=== PATIENT | female | born 1980 | race Caucasian/White ===

== ENCOUNTER 2017-08-26 12:09 | Emergency (ER) | payer OTHER ==
[~2017-08-26] VITALS: Ht 157.5 cm; Wt 74.8 kg
[~2017-08-26 12:09] MED LIST: ACYC800 PO; ALBU90OI61 INH; CEPH500 PO; CRUTCH4 USE; CYCL10 PO; GUAI100SY PO; HYDACE5 PO; IBUP800 PO; NAPR500 PO; NYQUIL; Naprosyn500 MG PO; Norco 5-325 Ta1 EACH PO; OXYACE5T PO; SULTRIDS PO; TRAM50 PO; Ultram50 MG PO
[2017-08-26] MEDS ORDERED: ALBU90OI INH (14:36)
[2017-08-26] MEDS ORDERED: BENZ100A PO (14:36)
== END 2017-08-26 14:59 | disposition home or self-care (01) ==
LOC: ER 12:09
DX: J06.9 Acute upper respiratory infection, unspecified (principal); F17.210 Nicotine dependence, cigarettes, uncomplicated
CPT/HCPCS: 71046; 99283

== ENCOUNTER → 2021-04-16 | Outpatient (CLI) | payer OTHER ==
[~2021-04-16] MED LIST changes: +ALBU90OI INH; +BENZ100A PO; +TRAZ50 PO
[2021-04-17 15:09] LABS: HPV 16 Negative (Negative); HPV 18 Negative (Negative); HPV OTHER HR TYPES Negative (Negative)
== END ==
LOC: LAB 10:55 → LAB SHORT 10:55
PROVIDERS: Obstetrics & Gynecology
DX: Z01.419 Encounter for gynecological examination (general) (routine) without abnormal findings (principal)
CPT/HCPCS: 87624; G0123

== ENCOUNTER 2022-10-03 08:24 | Emergency (ER) | payer OTHER ==
[~2022-10-03] VITALS: Ht 160 cm; Wt 86.2 kg
[2022-10-03] MEDS ORDERED: SUBOXONE 8 MG-1 EACH SL (09:03)
[2022-10-03] MEDS ORDERED: PHENERGAN25 MG PR (09:04)
[2022-10-03] MEDS ORDERED: ONDA4ODT MM (09:04)
== END 2022-10-03 09:16 | disposition home or self-care (01) ==
LOC: ER 08:24
DX: F11.90 Opioid use, unspecified, uncomplicated (principal); Z87.891 Personal history of nicotine dependence
CPT/HCPCS: 99281

== ENCOUNTER 2024-02-11 12:36 | Emergency (ER) | payer OTHER ==
[~2024-02-11] VITALS: Ht 160 cm; Wt 86.2 kg
[~2024-02-11 12:36] MED LIST changes: +ONDA4ODT MM; +PHENERGAN25 MG PR; +SUBOXONE 8 MG-1 EACH SL
[2024-02-11 13:35] VITALS: BP 119/74
[2024-02-11] MEDS ORDERED: Methadone HCL 10 MG TAB PO ONE (15:00)
[2024-02-11] MEDS ORDERED: METH10 (21:50)
== END 2024-02-11 15:30 | disposition home or self-care (01) ==
LOC: ER 12:36
DX: F11.90 Opioid use, unspecified, uncomplicated (principal); Z76.0 Encounter for issue of repeat prescription; Z79.899 Other long term (current) drug therapy; Z87.891 Personal history of nicotine dependence
CPT/HCPCS: 99281

== ENCOUNTER 2024-02-11 19:41 | Emergency (ER) | payer OTHER ==
[~2024-02-11] VITALS: Ht 157.5 cm; Wt 86.2 kg
[2024-02-11 20:00] VITALS: BP 127/901
[2024-02-11] MEDS ORDERED: METH10 (21:50)
== END 2024-02-11 20:30 | disposition home or self-care (01) ==
LOC: ER 19:41
DX: Z76.0 Encounter for issue of repeat prescription (principal); Z53.29 Procedure and treatment not carried out because of patient's decision for other reasons
CPT/HCPCS: 99281

== ENCOUNTER → 2024-07-25 | Outpatient (CLI) | payer OTHER ==
[~2024-07-25] MED LIST changes: +METH10
[2024-07-25 15:04] LABS: Bacterial Vaginosis PCR Negative (NEGATIVE); Candida Group, PCR NOT DETECTED (NOT DETECT); Candida glabrata-krusei, PCR NOT DETECTED (NOT DETECT)
== END ==
LOC: LAB SHORT 10:55 → LAB 10:55
PROVIDERS: Advanced Practice Midwife
DX: N76.0 Acute vaginitis (principal)
CPT/HCPCS: 81515

== ENCOUNTER 2024-08-12 18:20 | Emergency (ER) | payer OTHER ==
[~2024-08-12] VITALS: Ht 160 cm; Wt 72.6 kg
[2024-08-12 18:46] VITALS: BP 147/84
[2024-08-12] MEDS ORDERED: Methadone HCL 10 MG TAB PO ONE (18:50)
== END 2024-08-12 18:52 | disposition home or self-care (01) ==
LOC: ER 18:20
DX: F11.90 Opioid use, unspecified, uncomplicated (principal); Z76.0 Encounter for issue of repeat prescription; Z87.891 Personal history of nicotine dependence
CPT/HCPCS: 99281; A9270

== ENCOUNTER 2024-09-15 13:32 | Emergency (ER) | payer OTHER ==
[~2024-09-15] VITALS: Ht 157.5 cm; Wt 88.5 kg
[2024-09-15 13:41] VITALS: BP 138/83
[2024-09-15] MEDS ORDERED: Methadone HCL 10 MG TAB PO ONE (14:10)
== END 2024-09-15 14:29 | disposition home or self-care (01) ==
LOC: ER 13:32
DX: F11.90 Opioid use, unspecified, uncomplicated (principal); Z87.891 Personal history of nicotine dependence
CPT/HCPCS: 99281; A9270

== ENCOUNTER 2024-10-02 20:06 | Emergency (ER) | payer OTHER ==
[~2024-10-02] VITALS: Ht 160 cm; Wt 90.7 kg
[2024-10-02 20:13] VITALS: BP 153/93
[2024-10-02] MEDS ORDERED: Methadone HCL 10 MG TAB PO ONE (20:35)
== END 2024-10-02 20:40 | disposition home or self-care (01) ==
LOC: ER 20:06
DX: F19.10 Other psychoactive substance abuse, uncomplicated (principal); Z76.0 Encounter for issue of repeat prescription; Z87.891 Personal history of nicotine dependence
CPT/HCPCS: 99281; A9270

== ENCOUNTER 2024-10-10 18:26 | Emergency (ER) | payer OTHER ==
[~2024-10-10] VITALS: Ht 160 cm; Wt 90.7 kg
[2024-10-10 18:32] VITALS: BP 158/86
[2024-10-10] MEDS ORDERED: Methadone HCL 10 MG TAB PO ONE (19:30)
== END 2024-10-10 19:46 | disposition home or self-care (01) ==
LOC: ER 18:26
DX: Z76.89 Persons encountering health services in other specified circumstances (principal); F11.90 Opioid use, unspecified, uncomplicated; Z87.891 Personal history of nicotine dependence
CPT/HCPCS: 99281; A9270

== ENCOUNTER 2024-10-18 21:44 | Emergency (ER) | payer OTHER ==
[~2024-10-18] VITALS: Ht 160 cm; Wt 90.7 kg
[2024-10-18 22:06] VITALS: BP 138/95
[2024-10-18] MEDS ORDERED: Methadone HCL 10 MG TAB PO ONE (23:25)
== END 2024-10-19 00:18 | disposition left against medical advice (07) ==
LOC: ER 21:44
DX: Z76.0 Encounter for issue of repeat prescription (principal); Z87.891 Personal history of nicotine dependence
CPT/HCPCS: A9270

== ENCOUNTER 2024-11-15 20:16 | Emergency (ER) | payer OTHER ==
[~2024-11-15] VITALS: Ht 160 cm; Wt 90.7 kg
[2024-11-15 21:01] VITALS: BP 129/91
[2024-11-15] MEDS ORDERED: Methadone HCL 10 MG TAB PO ONE (21:05)
== END 2024-11-15 21:24 | disposition home or self-care (01) ==
LOC: ER 20:16
DX: Z76.0 Encounter for issue of repeat prescription (principal)
CPT/HCPCS: 99281; A9270

== ENCOUNTER 2024-11-22 20:55 | Emergency (ER) | payer OTHER ==
[~2024-11-22] VITALS: Ht 160 cm; Wt 86.2 kg
[2024-11-22 21:30] VITALS: BP 125/90
[2024-11-22] MEDS ORDERED: Erythromycin 0.5% Opth Oint 1 gm LEFTEYE ONE (21:50)
== END 2024-11-23 01:57 | disposition left against medical advice (07) ==
LOC: ER 20:55
DX: F11.93 Opioid use, unspecified with withdrawal (principal); Z76.0 Encounter for issue of repeat prescription; Z91.148 Patient's other noncompliance with medication regimen for other reason
CPT/HCPCS: 99281

== ENCOUNTER 2025-02-13 22:14 | Observation (INO) | payer OTHER ==
[~2025-02-13] VITALS: Ht 160 cm; Wt 81.7 kg
[2025-02-13] MEDS ORDERED: Haloperidol Lactate Inj. 5 MG/ML Injection IM ONE (22:55)
[2025-02-13] MEDS ORDERED: DiphenhydrAMINE HCl 50 MG/ML 1ML Vial IM ONE ×2 (22:55→23:00)
[2025-02-13] MEDS ORDERED: Ziprasidone Mesylate 20 MG / Vial IM ONE ×2 (23:00→23:01)
[2025-02-13] MEDS ORDERED: DiphenhydrAMINE HCl 50 MG/ML 1ML Vial ONE (23:00)
[2025-02-13 23:56] LABS: BASOPHILS ABSOLUTE AUTO 0.03 K/mm3 (0.00-0.23); BASOPHILS PERCENT AUTO 1 % (0-2); EOSINOPHILS ABSOLUTE AUTO 0.05 K/mm3 (0.00-0.68); EOSINOPHILS PERCENT AUTO 1 % (0-6); Hematocrit 37.2 % (33.0-51.0); Hemoglobin 12.3 g/dL (11.5-16.0); IMMATURE GRAN ABSOLUTE AUTO 0.01 K/mm3 (0.00-0.10); IMMATURE GRAN PERCENT AUTO 0 % (0-1); LYMPHOCYTES ABSOLUTE AUTO 1.19 K/mm3 (0.84-5.20); LYMPHOCYTES PERCENT AUTO 32 % (21-46); MONOCYTES ABSOLUTE AUTO 0.39 K/mm3 (0.16-1.47); MONOCYTES PERCENT AUTO 11 % (4-13); Mean Corpuscular HGB Conc 33.1 g/dL (31.5-36.5); Mean Corpuscular Volume 89 fL (80-100); NEUTROPHILS ABSOLUTE AUTO 2.02 K/mm3 (1.96-9.15); NEUTROPHILS PERCENT AUTO 55 % (41-73); NRBC ABSOLUTE 0.00 K/mm3 (0.00-0.02); NRBC Auto 0.0 /100 WBC (0.0-0.2); Platelet Count 207 K/mm3 (150-400); RDW Coefficient Variation 13.8 % (11.7-14.2); RDW Standard Deviation 44.4 fL (35.1-46.3)
[2025-02-14 00:20] LABS: Alanine Aminotransfer (ALT/SGP 23.0 U/L (12-78); Albumin, Blood 3.2 g/dL (3.4-5.0); Albumin/Globulin Ratio 0.9 (0.8-1.8); Anion Gap 7.0 mmol/L (3-11); Aspartate Aminotrans (AST/SGOT 15.0 U/L (12-37); Bilirubin, Total 0.6 mg/dL (0.1-1.0); Blood Urea Nitrogen 4.0 mg/dL (8-24); CO2, Blood 27.0 mmol/L (21-32); Calcium, Blood 8.1 mg/dL (8.5-10.1); Chloride, Blood 111.0 mmol/L (98-108); Creatinine, Blood 0.76 mg/dL (0.40-1.00); Ethanol (Alcohol), Blood, Med 53.0 mg/dL; Globulin, Blood 3.4 g/dL (2.2-4.0); Glucose, Blood 101.0 mg/dL (70-99); Potassium, Blood 3.3 mmol/L (3.5-5.5); Sodium, Blood 142.0 mmol/L (136-145); Total Protein, Blood 6.6 g/dL (6.4-8.2)
[2025-02-14 12:10] VITALS: BP 123/85
[2025-02-14 12:36] LABS: U Amphetamine Screen DETECTED; U Barbituate Screen Not Detected; U Benzodiazapine Screen DETECTED; U Buprenorphine Screen Not Detected; U Cannabinoids Screen Not Detected; U Cocaine Screen Not Detected; U Methadone Screen DETECTED; U Methamphetamine Screen DETECTED; U Opiates Screen Not Detected; U Oxycodone Screen Not Detected; U Phencyclidine Screen Not Detected
== END 2025-02-14 14:12 | disposition home or self-care (01) ==
LOC: ER 22:14 → EOR 22:15
PROVIDERS: ADMIT Emergency Medicine
DX: R45.851 Suicidal ideations (principal); F11.229 Opioid dependence with intoxication, unspecified; F15.229 Other stimulant dependence with intoxication, unspecified
CPT/HCPCS: 80053; 80320; 85025; 93005; 93010; 96372; 99285-25; G0378; J1200; J3486

== ENCOUNTER 2025-02-14 13:09 | Inpatient (IN) | payer OTHER ==
[~2025-02-14] VITALS: Ht 160 cm; Wt 78.8 kg
[2025-02-14] MEDS ORDERED: Aluminum Hydroxide 320MG/5ML 473 ML PO PRN (14:00)
[2025-02-14] MEDS ORDERED: DiphenhydrAMINE HCl 50 MG/ML 1ML Vial IM PRN (14:00)
[2025-02-14] MEDS ORDERED: Haloperidol Lactate Inj. 5 MG/ML Injection IM PRN (14:05)
[2025-02-14] MEDS ORDERED: Polyethylene Glycol 3350 17 gm PO PRN (14:10)
[2025-02-14] MEDS ORDERED: Ondansetron 4 MG SoluTab MM PRN (14:10)
--- NOTE | 2025-02-14 16:03 | NUR ---
ADMISSION ASSESSMENT: 14:14 PT ADMITTED TO [facility] FROM [facility]. HER BELONGINGS WERE STORED IN A BIN AND LOCKED WITH SECURE STRAPS. TWO NURSE SKIN CHECK COMPLETED IN A PRIVATE SETTING. PT HAS SUPERFICIAL CUTS ON BOTH WRISTS, "I WAS DRUNK AND FEELING BAD." PT HAS SCRAPES ON BOTH LEGS, "I FELL DOWN YESTERDAY." PT REPORTED THAT, "I QUIT [facility] FENTANYL IN DECEMBER...BOTH COLD TURKEY." PT'S TOX SCREEN WAS POSITIVE FOR METH. SHE REPORTED, "I AM NOT SUICIDAL...NEVER WOULD BE! I WAS HAVING A REALLY BAD DAY, WAS DRINKING AND SITTING ON THE BRIDGE. THE EQUIPMENT OPERATING ENGINEER CAME, I GOT MAD AND SAID SOMETHING ABOUT JUMPING OFF THE BRIDGE. THEN THEY LIED AND SAID THEY WOULD LET ME GO BUT THEN THEY HANDCUFFED ME AND TOOK ME TO THE ER. I HAV NO ONE TO CARE FOR MY CATS. I JUST WANT TO GO HOME. I ALSO LEFT THE KEYS TO MY CAR ON THE SEAT AND IT'S PARKED ON THE SIDE OF THE ROAD." PT WAS ENCOURAGED TO CALL SOMEONE TO CARE FOR HER CATS AND GO SECURE HER VEHICLE. PT TOOK A SHOWER AND IS NOW MAKING PHONE CALLS REGARDING HER CATS AND CAR.
[2025-02-14 20:26] VITALS: BP 108/70
--- NOTE | 2025-02-14 21:47 | NUR ---
MASS SCORE: PATIENT C/O AGITATION 8/10 SECONDARY TO HIGH ANXIETY. SHE WAS ABLE TO TALK ABOUT IT A LITTLE BIT WITH RN, BUT EXPRESSED CONCERNS THAT SHE COULDN'T BE SAFE "IF IT GETS WORSE". GIVEN ZYPREXA WITH A SECOND TRAZODONE. WILL CONTINUE TO MONITOR.
--- NOTE | 2025-02-15 05:00 | NUR ---
SHIFT SUMMARY: PATIENT WAS IN BED RESTING WITH EYES CLOSED AT THE BEGINNING OF THE SHIFT. SHE RESPONDED TO HER NAME, BUT HELD OFF ON ASSESSMENT UNTIL AFTER SNACK TIME. SHE PARTICIPATED IN SNACK AT 2030, AND WAS COMPLIANT WITH EVENING MEDICATIONS. SHE WAS ABLE TO ANSWER YOUTH LIAISON OFFICER QUESTIONS IN A LOGICAL AND LINEAR MANNER. SHE WAS TEARFUL TALKING ABOUT THE EVENTS THAT LED TO HER BEING ON THE BHU, AND SHE EXPRESSED WANTING TO HAVE "THINGS BE BETTER" IN THE FUTURE. SHE STATES THAT SHE MISSES HER CATS, AND TOLD THE STORIES BEHIND HER OBTAINING THEM. SHE GOT UP A SHORT TIME LATER AND WAS TEARFUL, STATING THAT HER ANXIETY WAS MAKING HER AGITATED "BECAUSE I KNOW IT'S GOING TO GET WORSE AND THAT WILL MAKE ME DO SOMETHING STUPID". SHE RATED IT AT AN 8/10. SHE WAS GIVEN A SECOND TRAZODONE AND A ZYPREXA, WHICH WERE EFFECTIVE. SHE DENIED SUICIDAL IDEATION, THOUGHTS OF SELF HARMING AND A/V/T HALLUCINATIONS. SHE SPENT THE REST OF THE SHIFT IN BED RESTING WITH EYES CLOSED AND RESPIRATIONS CONFIRMED. CONTINUING TO MONITOR FOR SAFETY WITH Q15 MINUTE CHECKS.
[2025-02-15] MEDS ORDERED: Multivitamins 1 Tab PO SCH (09:00)
[2025-02-15 09:04] VITALS: BP 121/88
--- NOTE | 2025-02-15 17:16 | NUR ---
SHIFT SUMMARY: PT ALERT AND ORIENTED. SHE DENIES SI, HI AND AVH. PT COMPLIANT WITH CARE AND MEDICATIONS. PT INITIALLY TOLD THIS RN THAT SHE DOES NOT DRINK ETOH DAILY BUT LATER TOLD THE PROGRAMMER ANALYST HEALTH IT SHE DOES DRINK DAILY. CIWA MONITORED PER PROTOCOL. PT C/O HAVING WITHDRAWS. STATED, "I DON'T KNOW IF ITS FROM FENTANYL OR METH OR WHAT" "I FEEL LIKE MY SKIN IS CRAWLING AND I FEEL LIKE I WANT TO HIT SOMETHING". PT DID NOT SHOW ANY SIGNS OF AGRESSION OR THREATENING BEHAVIOR WITH PEERS OR STAFF. HER CARE WAS DISCUSSED WITH THE PROVIDER AND PT WAS COMPLIANT WITH MEDICATION CHANGES. SHE SHOWERED THIS AM, WAS IN AND OUT OF THE AFTERNOON GROUPS BUT SPENT MUCH OF THE DAY RESTING ON HER BED.
[2025-02-15 19:46] VITALS: BP 98/70
--- NOTE | 2025-02-15 20:03 | NUR ---
CIWA: PATIENT HAS A CIWA SCORE OF 8 CURRENTLY. SHE IS IN BED C/O ITCHY FEELING "LIKE SOMETHING IS CRAWLING ON ME". DENIES NEED FOR PRN OR OTHER COPING SKILL AT THIS TIME. STATES SHE WILL REPORT WORSENING OF SYMPTOMS. CONTINUING TO MONITOR.
--- NOTE | 2025-02-15 20:48 | NUR ---
MEDICATION ADMINISTRATION: PATIENT REQUESTED MELATONIN AND TRAZODONE FOR HER EVENING PRN MEDICATION ADMINISTRATION. SHE STATED THAT "THEY WORKED LAST NIGHT" AND THAT SHE IS NOT OVERLY SEDATED AND ABLE TO WAKE UP IN THE MORNING. "I'M HAVING A LOT OF PROBLEMS, BUT THEY ARE FROM WITH WITHDRAWAL, NOT THOSE" REFERRING TO THE MEDICATIONS. SHE STATED THAT SHE WILL LET RN KNOW IF HER CIWA SYMPTOMS WORSEN. CONTINUING TO MONITOR FOR EFFECTIVENESS AND SAFETY.
--- NOTE | 2025-02-15 23:01 | NUR ---
MEDICATION ADMINISTRATION: PATIENT GOT UP AT 2250 AND STATED THAT SHE WAS UNABLE TO REST BECAUSE OF ANXIETY, AND WANTED "SOMETHING TO HELP". COPING SKILLS WERE DISCUSSED, AND PATIENT WANTED TO TRY VISTARIL, WHICH WAS GIVEN FOR ANXIETY LEVEL 8/10 PER PATIENT. CONTINUING TO MONITOR FOR EFFECTIVENESS AND SAFETY.
--- NOTE | 2025-02-16 04:32 | NUR ---
SHIFT SUMMARY: PATIENT WAS IN HER ROOM LYING ON HER BED AT THE BEGINNING OF THE SHIFT. SHE STATED THAT SHE DIDN'T FEEL WELL, AND SPECIFIED "I FEEL LIKE THINGS ARE CRAWLING ON ME AND I HURT EVERYWHERE." SHE DID NOT WANT PRN PAIN RELIEVERS SUCH ADVIL OR TYLENOL, STATING, "THEY WON'T HELP". SHE WAS ABLE TO ENGAGE IN FURNITURE REFINISHER, ALTHOUGH THERE WAS A DELAY IN SOME OF HER ANSWERS. SHE STATED THAT SHE DID NOT HAVE SUICIDAL IDEATION OR THOUGHTS OF SELF HARMING, AND DENIED A/V/T HALLUCINATIONS. SHE WAS ENCOURAGED TO GET UP FOR SNACK AND SHE DID SO. SHE REQUESTED "TRAZODONE AND MELATONIN" AND SHE REFUSED HER ATIVAN, STATING "I ALREADY HAD THAT". RN TOLD HER IT WOULD BE THERE IF SHE CHANGED HER MIND, UNTIL AN HOUR AFTER SCHEDULED TIME. SHE VERBALIZED UNDERSTANDING, BUT DID NOT ASK FOR IT. SHE PARTICIPATED IN SNACK AND WRAP UP GROUP, THEN WENT BACK TO HER ROOM TO LIE ON HER BED. SHE WAS COMPLIANT WITH MEDICATION ADMINISTRATION, EXCEPT FOR REFUSING ATIVAN. SHE GOT UP A TIME LATER, ABOUT 2250, TO ASK FOR "SOMETHING FOR ANXIETY". AGAIN THE ATIVAN WAS OFFERED, BUT SHE DECLINED, SO WAS OFFERED VISTARIL, WITH MEDICATION EDUCATION TO HOW IT MIGHT WORK AND MIGHT BE HELPFUL. SHE RATED HER ANXIETY AT 8/10 AND WANTED THE VISTARIL, WHICH WAS EFFECTIVE. AFTER TAKING IT, SHE WENT BACK TO BED, AND ALTHOUGH SHE CRIED OUT AND MOANED IN HER SLEEP, SHE DID NOT WAKE UP THROUGHOUT THE SHIFT. CONTINUING TO MONITOR FOR SAFETY WITH Q15 MINUTE CHECKS. WA WAS A 5 AT 0000 AND 0400.
[2025-02-16 08:49] VITALS: BP 118/90
[2025-02-16 09:08] LABS: CHOL/HDL RATIO 4.1; Cholesterol 203 mg/dL (50-200); HDL Cholesterol 50 mg/dL (>39); LDL/HDL RATIO 2.3; Low Density Lipoprotein Chol 116 mg/dL (0-110); Triglycerides 186 mg/dL (30-160); Very Low Density Lipoprot Chol 37 mg/dL (6-32)
[2025-02-16] MEDS ORDERED: Buprenorphine HCL/Naloxone HCL 8MG-2MG Tab SL SCH (14:00)
[2025-02-16] MEDS ORDERED: Buprenorphine HCL/Naloxone HCL 2-0.5MG 1 EA SL SCH (16:00)
--- NOTE | 2025-02-16 17:10 | NUR ---
SHIFT SUMMARY: PT ALERT, ORIENTED AND COOPERATIVE WITH CARE. SHE DENIED SI, HI AND AHV. SHE ATTENDED MEALS AND ATTENDED THE AFTERNOON GROUP. SHE SPENT TIME IN THE DAY ROOM WATCHING TV AND IN HER ROOM RESTING ON HER BED.
[2025-02-16 19:46] VITALS: BP 106/92
--- NOTE | 2025-02-16 20:45 | NUR ---
MEDICATION ADMINISTRATION: PATIENT STATED THAT SHE "DID WELL" WITH MELATONIN AND TRAZODONE LAST NIGHT, AND WANTED THEM AGAIN. SHE DID AGREE TO TAKE HER SCHEDULED ATIVAN TONIGHT. SHE WAS EDUCATED ON THE MEDICATIONS AND REMINDED THAT IF SHE STARTS TO FEEL ANXIOUS OR AGITATED, SHE CAN ALWAYS ASK THE NURSE FOR HELP. SHE VERBALIZED UNDERSTANDING, AND STATED, "I FEEL BETTER TODAY, EXCEPT THAT I'M FREEZING".
--- NOTE | 2025-02-17 00:06 | NUR ---
MEDICATION ADMINISTRATION: PATIENT GOT UP AND C/O "I NEED A SUBOXONE. YOU DON'T KNOW ANYTHING. YOU CAN'T JUST GIVE ME ONE AND EXPECT IT TO BE OKAY." SHE WAS TOLD SHE CAN SPEAK TO THE DOCTOR TOMORROW, BUT THIS IS HOW HE ORDERED IT, AND IT FOLLOWS PROTOCOL. SHE WAS OFFERED A VISTARIL AND DECLINED. SHE WENT DOWN TO HER ROOM, THEN CAME BACK OUT ALMOST IMMEDIATELY AND WANTED THE VISTARIL. MEDICATION EDUCATION WAS GIVEN, AND SHE AGREED THAT IT "MIGHT HELP". SHE TOOK IT AT 2340, AND WENT BACK TO HER ROOM. CONTINUING TO MONITOR FOR EFFECTIVENESS AND SAFETY. SHE RATED HER ANXIETY 8/10 SECONDARY TO "NEEDING SUBOXONE"
--- NOTE | 2025-02-17 00:08 | NUR ---
MEDICATION ADMINISTRATION: PATIENT GOT BACK UP JUST BEFORE MIDNIGHT AND STATED THAT SHE "CAN'T STAND IT" AND "I NEED SUBOXONE". SHE WAS TOLD THAT NONE IS AVAILABLE AT THIS TIME, BUT THAT ZYPREXA IS AVAILABLE. SHE HAS AN AGITATION SCALE OF 8/10 EVIDENCED BY THROWING ITEMS IN HER ROOM, YELLING OUT, AND CALLING STAFF NAMES DUE TO NO ACCESS TO SUBOXONE. SHE AGREED TO TRY ZYPREXA, AND IT WAS GIVEN TO HER AFTER MEDICATION EDUCATION. CONTINUING TO MONITOR FOR EFFECTIVENESS AND SAFETY.
--- NOTE | 2025-02-17 04:49 | NUR ---
SHIFT SUMMARY: PATIENT WAS IN HER ROOM AT THE BEGINNING OF THE SHIFT, LYING ON HER BED AWAKE. SHE STATED THAT SHE WAS NOT IN MUCH PAIN TODAY, BUT "I'M STILL MISERABLE. I NEED MORE SUBOXONE." HER MEDICATION ORDERS WERE EXPLAINED TO HER, BUT SHE DID NOT RESPOND. SHE DID NOT WANT ANOTHER PRN MEDICATION. SHE WAS ABLE TO ANSWER RN QUESTIONS IN A LOGICAL AND LINEAR MANNER, ALTHOUGH SHE HAD A DELAY IN RESPONSES. SHE DENIED SUICIDAL IDEATION, VEHEMENTLY, STATING THAT "I NEVER WAS SUICIDAL". SHE DENIED THOUGHTS OF SELF HARMING AND A/V/T HALLUCINATIONS. SHE SHOWED EMPATHY FOR HER ROOMMATE, WHO WAS NOT FEELING WELL. SHE PARTICIPATED IN SNACK AND WRAP UP GROUP IN THE DINING AREA AT 2030. SHE WANTED HER MELATONIN AND TRAZODONE PRN MEDICATION, WELL HER SCHEDULED ATIVAN, WHICH SHE TOOK WITH NO COMPLAINTS. SHE THEN WENT TO BED AND WAS NOTED TO BE MOANING AND YELLING OUT. SHE STARTED TO THROW THINGS AT ABOUT 2200, INCLUDING HER COMB AND A PILLOW, FRIGHTENING HER ROOMMATE. PATIENT CAME OUT AND DEMANDED SUBOXONE, STATING, "YOU DON'T KNOW ANYTHING ABOUT MEDICATION" AND "THEY ALWAYS GIVE IT MANY TIMES A DAY, YOU ARE MAKING ME SUFFER". SHE DID NOT WANT ADVIL OR TYLENOL. SHE DECLINED ALL OFFERS OF COPING SKILLS SUCH SENSORY ROOM AND HEADPHONES, WELL ANY PRN MEDICATION. SHE WENT BACK TO HER ROOM AND BEGAN YELLING AGAIN, THEN CAME OUT AND STATED, "I GUESS I'LL TRY THE VISTARIL." IT WAS GIVEN TO HER WITH MEDICATION EDUCATION. AFTER ABOUT A HALF HOUR, SHE WAS BECOMING MORE AGITATED EVIDENCED BY YELLING, MOANING AND THROWING ITEMS ACROSS THE ROOM. SHE WAS GIVEN ZYPREXA, WITH HER PERMISSION, FOR AGITATION LEVEL 8/10, AND IT WAS EFFECTIVE. PATIENT THEN APPEARED TO SLEEP AT TIMES, STILL GETTING WAKEFUL AND MOANING. SHE WAS IN THE BATHROOM AT ONE POINT, AND WHEN ASKED IF SHE WAS OKAY, STATED, "i DON'T KNOW, THEY ARE MAKING ME STAY HERE". SHE DECLINED OFFERS OF HELP AND STAYED IN HER ROOM. CONTINUING TO MONITOR FOR SAFETY WITH Q15 MINUTE CHECKS.
[2025-02-17 08:48] VITALS: BP 112/82
[2025-02-17] MEDS ORDERED: Buprenorphine HCL/Naloxone HCL 2-0.5MG 1 EA SL SCH (11:00)
--- NOTE | 2025-02-17 17:37 | NUR ---
SHIFT SUMMARY: PT ALERT, ORIENTED AND COOPERATIVE WITH CARE. SHE DENIES SI, HI AND AVH. PT STATES THAT SHE IS FEELING BETTER TODAY AFTER HAVING THE SUBOXONE. PT SHOWERED AND WAS PRESENT FOR MEALS. SHE SPENT TIME IN THE DAY ROOM WATCHING TV AND TALKING WITH PEERS.
[2025-02-17 20:52] VITALS: BP 120/84
--- NOTE | 2025-02-18 00:44 | NUR ---
MEDICATION ADMINISTRATION: PATIENT REQUESTED AND WAS GIVEN A VISTARIL WITH HER EVENING MEDICATIONS. SHE STATED THAT SHE WAS ANXIOUS 02/24. CONTINUING TO MONITOR FOR EFFECTIVENESS AND SAFETY.
--- NOTE | 2025-02-18 04:23 | NUR ---
SHIFT SUMMARY: PATIENT WAS IN HER ROOM ON HER BED AWAKE AT THE BEGINNING OF THE SHIFT. SHE DID NOT SAY MUCH IN RESPONSE TO RN QUESTIONS, BUT DID ANSWER THEM LATER. SHE DENIED SUICIDAL IDEATION, THOUGHTS OF SELF HARMING AND A/V/T HALLUCINATIONS. SHE STATED THAT THE DE-TOXING IS "GOING BETTER, I DON'T FEEL BADLY NOW THAT I HAVE MORE SUBOXONE." SHE PARTICIPATED IN SNACK AND WRAP UP GROUP AT 2030 IN THE DINING AREA. SHE REQUESTED VISTARIL PRN WITH HER SCHEDULED EVENING MEDICATIONS. SHE WENT BACK TO BED AFTER SNACK AND WAS NOTED TO BE RESTING QUIETLY WITH EYES CLOSED AND RESPIRATIONS CONFIRMED FOR THE REMAINDER OF THE SHIFT. CONTINUING TO MONITOR FOR SAFETY WITH Q15 MINUTE CHECKS.
[2025-02-18 08:35] VITALS: BP 116/89
--- NOTE | 2025-02-18 18:06 | NUR ---
SHIFT SUMMARY PT AxOx4. PLEASANT AND COOPERATIVE WITH CARE. PT DENIED FEELING SI/HI AND AVTH THIS SHIFT AND ENDORSED FEELING REMORSEFUL OF HER PREVIOUS SI ACTIONS. SHE STATES "NEVER AGAIN" AND REPORTS FEELING BETTER TODAY AFTER GETTING GOOD SLEEP, BUT REPORTS FEELING REALLY HOMESICK. SHE HAS BEEN FOLLOWING HER TREATMENT PLAN THIS SHIFT INCLUDING TAKING MEDICATIONS PRESCRIBED, ATTENDING ALL [place] THERAPY GROUPS AND MINGLING APPROPRIATELY WITH PEERS/STAFF. PROVIDER ADDED REMERON MEDICATION TO BE STARTED TONIGHT. PT AWARE AND AGREEABLE TO MED CHANGES. SHE IS CURRENTLY SITTING IN DINING ROOM EATING DINNER. SHE DENIES ANY NEEDS AT THIS TIME. CURRENT DC PLANS IS ANTICIPATED FOR MID-LATE THIS WEEK.
[2025-02-18 20:43] VITALS: BP 122/82
--- NOTE | 2025-02-19 04:44 | NUR ---
SHIFT SUMMARY PT IN ROOM READING AT START OF SHIFT. SHE REPORTS HER MOOD "GOOD". SHE DENIES ANY SI, HI, THOUGHTS OF SELF HARM, OR AVTH. SHE HAD EVENING SNACK AND WAS COMPLIANT WITH SCHEDULED MEDS. SHE WENT TO BED AFTER SNACK AND PRESENTED TO THE NURSES STATION AROUND 2200, STATING SHE COULD NOT SLEEP AND REQUESTED AND RECEIVED PRN TRAZODONE. PT APPEARED TO FALL ASLEEP AT APPROXIMATELY 2300, WITH RESPIRATIONS CONFIRMED WITH Q15 MINUTE ROUNDING. SHE HAS REMAINED IN BED THROUGHOUT THE NIGHT.
[2025-02-19 08:43] VITALS: BP 119/83
--- NOTE | 2025-02-19 17:19 | NUR ---
SHIFT SUMMARY PT UP FOR MEALS THIS SHIFT AND COMPLIANT WITH ALL MEDICATIONS. SHE DENIES SI/HI/AVH. SHE STARTED TO GET INCREASING ANXIETY THE DAY WENT ON. SHE WAS GIVEN VISTARIL FOR ANXIETY IN THE EVENING. SHE STATES SHE WAS GETTING ANXIOUS ABOUT HER CATS AND DISCHARGE. SHE EXPRESSED TO STAFF THAT SHE WANTED TO D/C HOME TODAY AND IS UPSET THAT SHE HAS TO WAIT. PLAN TO D/C TUESDAY. SHE HAS HAD NO OTHER ACUTE EVENTS THIS SHIFT. ALL SAFETY CHECKS COMPLETED.
[2025-02-19 20:40] VITALS: BP 117/86
--- NOTE | 2025-02-20 04:59 | NUR ---
SHIFT SUMMARY PT PACING IN HALLWAY AT START OF SHIFT. SHE DENIES ANY SI, HI, THOUGHTS OF SELF HARM OR AVTH. SHE REPORTS FEELING VERY ANXIOUS AND WANTS TO GO HOME TO BE WITH HER CATS. MASS SCORE OF 4. PT REQUESTED AND RECEIVED PRN ZYPREXA WTIH GOOD AFFECT. SHE WAS PRESENT IN [place] AND INTERACTED WITH PEERS. SHE HAD EVENING SNACK AND WAS COMPLIANT WITH SCHEDULED MEDS. SHE WENT TO BED, BUT PRESENTED TO NURSES STATION AT APPROXIMATELY 2150, STATING THAT SHE COULDN'T SLEEP AND REQUESTED AND RECEIVED PRN TRAZODONE. SHE HAS REMAINED IN BED THROUGHOUT THE NIGHT. Q15 MINUTE CHECKS TO CONTINUE PER PT SAFETY.
[2025-02-20 08:18] VITALS: BP 122/97
--- NOTE | 2025-02-20 18:07 | NUR ---
SHIFT SUMMARY PT COMPLIANT WITH ALL MEDICATIONS THIS SHIFT AND DID NOT RECIEVE ANY PRN'S. SHE DENIES ALL SI/HI/AVH AND DENIES ANXIETY. SHE ATTENDED GROUPS AND MEALS AND INTEREACTED WELL AND FREQUENTLY WITH OTHER PATIENTS IN THE [place]. PLANNING POSSIBLE D/C TOMORROW. SHE CALLED HER MOTHER TO HAVE HER POSSIBLY DROP OFF HER CAR KEYS. PT HAD NO ACUTE EVENTS THIS SHIFT.
[2025-02-20 20:34] VITALS: BP 115/79
--- NOTE | 2025-02-21 04:46 | NUR ---
SHIFT SUMMARY PT PRESENT IN [place] AT START OF SHIFT. SHE DENIES ANY SI, HI OR AVTH. SHE REPORTS FEELING ANXIOUS, AND STATES SHE HELD OFF ALL DAY TAKING ANYTHING FOR ANXIETY, BUT IS NOW REQUESTING ZYPREXA. MASS SCORE OF 4. ZPYREXA WAS GIVEN AT APPROXIMATELY 1950. PT STATES SHE IS VERY EXCITED TO BE GOING HOME TO SEE HER PETS AND FEELS READY FOR DISCHARGE. SHE HAD EVENING SNACK, WAS COMPLIANT WITH EVENING MEDICATIONS. AT APPROXIMATELY 2115 PT PRESENTED TO NURSES STATION AND STATED SHE COULDN'T SLEEP AND REQUESTED AND RECEIVED PRN TRAZODONE. PT HAS REMAINED IN BED THROUGHOUT THE NIGHT. Q15 MINUTE CHECKS TO CONTINUE PER PT SAFETY.
[2025-02-21 07:51] VITALS: BP 118/85
--- NOTE | 2025-02-21 10:16 | NUR ---
IMPORTANT DISCHARGE INFORMATION PATIENT TO BE DISCHARGED TODAY AROUND 1PM. HER VEHICLE IS PARKED IN [facility] PARKING LOT AND WILL BE DISCHARGED AT THE U DOOR. ALL PARTIES VERBALIZE AN UNDERSTANDING. FOLLOW UP WITH PCP ON 02/25/25 AT 2:15PM MADELINE BURRELL FOLLOW UP WITH [facility]. REFERRAL PLACED. PHARMACY: [facility] FA[facility]
[2025-02-21] MEDS ORDERED: BUPRENORPHN-NA1 EACH SL (10:20)
[2025-02-21] MEDS ORDERED: MELA3 PO (10:21)
[2025-02-21] MEDS ORDERED: MIRT30 PO (10:21)
[2025-02-21] MEDS ORDERED: TRAZ100 PO (10:22)
--- NOTE | 2025-02-21 11:18 | NUR ---
SPOKE TO [facility]. [facility] REPORTS THAT PHARMASIST WILL ACCEPT FAXED PRESCIPTION FOR SUBOXONE. NO HARD COPY IS NEEDED.
--- NOTE | 2025-02-21 13:38 | NUR ---
NURSING DISCHARGE NOTE PT AA&O TP PERSON, PLACE, TIME AND SITUATION. SHE IS PLEASANT AND COOPERATIVE WITH CARE. SHE REPORTS HER MOOD GOO, SHE STATES SHE IS ECXITED FOR DISCHARGE AND MISSES HER CATS. SHE DENIES SI, AVH. DISCHARGE MEDICATIONS, APPOINTMENTS, HOW TO ACCESS MEDICAL RECORDS REVIEWED WITH PATIENT. SHE DECLINED SMOKING CEASATION INFORMATION. SHE VERBALIZED UNDERSTANDING AND DENIED ANY QUESTIONS OR CONCERNS. PT BELONGINGS RETURNED AND PT DISCHARGED TO HOME @130
== END 2025-02-21 12:30 | disposition home or self-care (01) | DRG 881 ==
LOC: BHU 13:09
PROVIDERS: ADMIT Psychiatry & Neurology Psychiatry
DX: F32.A Depression, unspecified (principal); R45.851 Suicidal ideations; F15.20 Other stimulant dependence, uncomplicated; F11.20 Opioid dependence, uncomplicated; Z79.899 Other long term (current) drug therapy
CPT/HCPCS: 36415; 80061; 83036; A9270; J0572

== ENCOUNTER 2025-02-28 22:37 | Emergency (ER) | payer OTHER ==
[~2025-02-28] VITALS: Ht 160 cm; Wt 79.4 kg
[~2025-02-28 22:37] MED LIST changes: +BUPRENORPHN-NA1 EACH SL; +MELA3 PO; +MIRT30 PO; +TRAZ100 PO
[2025-03-01 00:03] LABS: Acetaminophen, Random <2.0 ug/mL (10.0-30.0); Alanine Aminotransfer (ALT/SGP 24 U/L (12-78); Albumin, Blood 3.7 g/dL (3.4-5.0); Albumin/Globulin Ratio 1.0 (0.8-1.8); Anion Gap 10 mmol/L (3-11); Aspartate Aminotrans (AST/SGOT 18 U/L (12-37); Bilirubin, Total 0.8 mg/dL (0.1-1.0); Blood Urea Nitrogen 5 mg/dL (8-24); CO2, Blood 20 mmol/L (21-32); Calcium, Blood 8.6 mg/dL (8.5-10.1); Chloride, Blood 113 mmol/L (98-108); Creatinine, Blood 0.73 mg/dL (0.40-1.00); Ethanol (Alcohol), Blood, Med 29 mg/dL; Globulin, Blood 3.6 g/dL (2.2-4.0); Glucose, Blood 95 mg/dL (70-99); Potassium, Blood 3.6 mmol/L (3.5-5.5); Salicylate <1.7 mg/dL (2.8-20.0); Sodium, Blood 139 mmol/L (136-145); Total Protein, Blood 7.3 g/dL (6.4-8.2)
[2025-03-01 00:10] LABS: BASOPHILS ABSOLUTE AUTO 0.04 K/mm3 (0.00-0.23); BASOPHILS PERCENT AUTO 1 % (0-2); EOSINOPHILS ABSOLUTE AUTO 0.02 K/mm3 (0.00-0.68); EOSINOPHILS PERCENT AUTO 0 % (0-6); Hematocrit 40.9 % (33.0-51.0); Hemoglobin 13.9 g/dL (11.5-16.0); IMMATURE GRAN ABSOLUTE AUTO 0.00 K/mm3 (0.00-0.10); IMMATURE GRAN PERCENT AUTO 0 % (0-1); LYMPHOCYTES ABSOLUTE AUTO 1.75 K/mm3 (0.84-5.20); LYMPHOCYTES PERCENT AUTO 29 % (21-46); MONOCYTES ABSOLUTE AUTO 0.59 K/mm3 (0.16-1.47); MONOCYTES PERCENT AUTO 10 % (4-13); Mean Corpuscular HGB Conc 34.0 g/dL (31.5-36.5); Mean Corpuscular Volume 89 fL (80-100); NEUTROPHILS ABSOLUTE AUTO 3.65 K/mm3 (1.96-9.15); NEUTROPHILS PERCENT AUTO 60 % (41-73); NRBC ABSOLUTE 0.00 K/mm3 (0.00-0.02); NRBC Auto 0.0 /100 WBC (0.0-0.2); Platelet Count 263 K/mm3 (150-400); RDW Coefficient Variation 14.2 % (11.7-14.2); RDW Standard Deviation 45.2 fL (35.1-46.3)
[2025-03-01 00:55] LABS: Source, Urine Clean Catch
[2025-03-01 00:59] LABS: Bilirubin, Urine Neg (Neg); Glucose Qualitative, Urine Neg (Neg); Ketones, Urine Neg (Neg); Leukocyte Esterase, Urine Neg (Neg); Protein, Urine Neg (Neg); Specific Gravity, Urine 1.010 (1.003-1.022); Urobilinogen, Urine NORM (Normal)
[2025-03-01 01:32] LABS: Color, Urine Pale Yellow (P-Yellow)
[2025-03-01 01:33] LABS: U Amphetamine Screen DETECTED; U Barbituate Screen Not Detected; U Benzodiazapine Screen DETECTED; U Buprenorphine Screen Not Detected; U Cannabinoids Screen Not Detected; U Cocaine Screen Not Detected; U Methadone Screen Not Detected; U Methamphetamine Screen DETECTED; U Opiates Screen Not Detected; U Oxycodone Screen Not Detected; U Phencyclidine Screen Not Detected
[2025-03-01] MEDS ORDERED: NS 1,000 ML IV SCH (01:35)
[2025-03-01 02:09] VITALS: BP 135/77
== END 2025-03-01 02:20 | disposition home or self-care (01) ==
LOC: ER 22:37
PROVIDERS: Student in an Organized Health Care Education/Training Program
DX: F15.129 Other stimulant abuse with intoxication, unspecified (principal); F10.90 Alcohol use, unspecified, uncomplicated; Z87.891 Personal history of nicotine dependence; Z79.899 Other long term (current) drug therapy; R00.0 Tachycardia, unspecified
CPT/HCPCS: 80053; 80320; 81003; 81025; 85025; 93005; 93010; 99283-25; G0480; J7030

== ENCOUNTER 2025-03-10 11:23 | Emergency (ER) | payer OTHER ==
[~2025-03-10] VITALS: Ht 160 cm; Wt 74.8 kg
[2025-03-10 11:53] VITALS: BP 154/87
== END 2025-03-10 11:57 | disposition home or self-care (01) ==
LOC: ER 11:23
DX: E86.0 Dehydration (principal); F15.90 Other stimulant use, unspecified, uncomplicated; Z79.899 Other long term (current) drug therapy; Z87.891 Personal history of nicotine dependence
CPT/HCPCS: 99283

== ENCOUNTER 2025-03-10 14:39 | Emergency (ER) | payer OTHER ==
[~2025-03-10] VITALS: Ht 160 cm; Wt 74.8 kg
[2025-03-10 14:56] VITALS: BP 138/95
== END 2025-03-10 16:50 | disposition home or self-care (01) ==
LOC: ER 14:39
DX: M79.671 Pain in right foot (principal); M21.611 Bunion of right foot; Z79.899 Other long term (current) drug therapy
CPT/HCPCS: 73630; 99283-25

== ENCOUNTER 2025-03-18 21:02 | Observation (INO) | payer OTHER ==
[~2025-03-18] VITALS: Ht 160 cm; Wt 72.6 kg
[2025-03-18 21:17] VITALS: BP 147/100
[2025-03-19 01:19] LABS: Source, Urine Clean Catch
[2025-03-19 01:52] LABS: U Amphetamine Screen DETECTED; U Barbituate Screen Not Detected; U Benzodiazapine Screen DETECTED; U Buprenorphine Screen Not Detected; U Cannabinoids Screen Not Detected; U Cocaine Screen Not Detected; U Methadone Screen DETECTED; U Methamphetamine Screen DETECTED; U Opiates Screen Not Detected; U Oxycodone Screen Not Detected; U Phencyclidine Screen Not Detected
[2025-03-19 01:57] LABS: Bilirubin, Urine Neg (Neg); Glucose Qualitative, Urine Neg (Neg); Ketones, Urine 1+ (Neg); Leukocyte Esterase, Urine Neg (Neg); Protein, Urine 2+ (Neg); Specific Gravity, Urine 1.030 (1.003-1.022); Urobilinogen, Urine 1+ (Normal)
[2025-03-19 02:01] LABS: Color, Urine Yellow (P-Yellow)
[2025-03-19 02:02] LABS: Red Blood Cells, Urine Not Seen /hpf (0-2); White Blood Cells, Urine 0-2 /hpf (0-5)
[2025-03-19 02:06] LABS: BASOPHILS ABSOLUTE AUTO 0.06 K/mm3 (0.00-0.23); BASOPHILS PERCENT AUTO 1 % (0-2); EOSINOPHILS ABSOLUTE AUTO 0.04 K/mm3 (0.00-0.68); EOSINOPHILS PERCENT AUTO 1 % (0-6); Hematocrit 40.0 % (33.0-51.0); Hemoglobin 13.7 g/dL (11.5-16.0); IMMATURE GRAN ABSOLUTE AUTO 0.00 K/mm3 (0.00-0.10); IMMATURE GRAN PERCENT AUTO 0 % (0-1); LYMPHOCYTES ABSOLUTE AUTO 1.87 K/mm3 (0.84-5.20); LYMPHOCYTES PERCENT AUTO 35 % (21-46); MONOCYTES ABSOLUTE AUTO 0.77 K/mm3 (0.16-1.47); MONOCYTES PERCENT AUTO 14 % (4-13); Mean Corpuscular HGB Conc 34.3 g/dL (31.5-36.5); Mean Corpuscular Volume 89 fL (80-100); NEUTROPHILS ABSOLUTE AUTO 2.67 K/mm3 (1.96-9.15); NEUTROPHILS PERCENT AUTO 49 % (41-73); NRBC ABSOLUTE 0.00 K/mm3 (0.00-0.02); NRBC Auto 0.0 /100 WBC (0.0-0.2); Platelet Count 224 K/mm3 (150-400); RDW Coefficient Variation 14.4 % (11.7-14.2); RDW Standard Deviation 46.6 fL (35.1-46.3)
[2025-03-19 02:31] LABS: Ethanol (Alcohol), Blood, Med <3 mg/dL; Thyroid Stimulating Hormone 1.510 uIU/mL (0.360-4.800)
[2025-03-19 02:34] LABS: Alanine Aminotransfer (ALT/SGP 28 U/L (12-78); Albumin, Blood 4.0 g/dL (3.4-5.0); Albumin/Globulin Ratio 1.3 (0.8-1.8); Anion Gap 11 mmol/L (3-11); Aspartate Aminotrans (AST/SGOT 27 U/L (12-37); Bilirubin, Total 2.3 mg/dL (0.1-1.0); Blood Urea Nitrogen 12 mg/dL (8-24); CO2, Blood 23 mmol/L (21-32); Calcium, Blood 8.5 mg/dL (8.5-10.1); Chloride, Blood 109 mmol/L (98-108); Creatinine, Blood 0.72 mg/dL (0.40-1.00); Globulin, Blood 3.0 g/dL (2.2-4.0); Glucose, Blood 92 mg/dL (70-99); Potassium, Blood 3.1 mmol/L (3.5-5.5); Sodium, Blood 140 mmol/L (136-145); Total Protein, Blood 7.0 g/dL (6.4-8.2)
[2025-03-19 02:36] LABS: Acetaminophen, Random <2.0 ug/mL (10.0-30.0); Salicylate <1.7 mg/dL (2.8-20.0)
== END 2025-03-19 21:58 | disposition left against medical advice (07) ==
LOC: ER 21:02 → EOR 21:03
PROVIDERS: ADMIT Emergency Medicine
DX: R41.0 Disorientation, unspecified (principal); F15.90 Other stimulant use, unspecified, uncomplicated; Z79.899 Other long term (current) drug therapy; Z87.891 Personal history of nicotine dependence; Z53.29 Procedure and treatment not carried out because of patient's decision for other reasons
CPT/HCPCS: 80053; 80320; 81001; 81025; 84439; 84443; 85025; 93005; 93010; 99285-25; G0378; G0480

== ENCOUNTER 2025-04-17 21:42 | Emergency (ER) | payer OTHER ==
[~2025-04-17] VITALS: Ht 167.6 cm; Wt 68.0 kg
[2025-04-17] MEDS ORDERED: Diazepam 5 MG / ML 2ML SYR ONE (22:02)
[2025-04-17 22:31] VITALS: BP 136/99
[2025-04-17] MEDS ORDERED: Diazepam 5 MG / ML 2ML SYR IV ONE (22:35)
== END 2025-04-17 22:45 | disposition home or self-care (01) ==
LOC: ER 21:42
DX: S01.511A Laceration without foreign body of lip, initial encounter (principal); S01.81XA Laceration without foreign body of other part of head, initial encounter; S01.412A Laceration without foreign body of left cheek and temporomandibular area, initial encounter; Y04.8XXA Assault by other bodily force, initial encounter; Z87.891 Personal history of nicotine dependence
CPT/HCPCS: 12055; 96374-59; 99285-25; J3360